=== PATIENT | male | born 1960 | race Caucasian/White ===

== ENCOUNTER 2017-11-04 10:52 | Observation (INO) ==
[2017-11-04] MEDS ORDERED: 0.9 % Sodium Chloride 1,000 ML IVC ONE (11:59)
--- NOTE | 2017-11-04 12:02 | Emergency Department Note ---
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 Has medicines for about 6 months. Says his glucose is a been over 600 last couple days. Pt Subjective Complaint: Elevated blood sugar Onset (ago): week(s) Pain Scale: 0 Improves with: nothing Worsens with: nothing Associated symptoms: Reports: other (Polydipsia polyuria) Treatments Prior to Arrival: none - Related Data Home Medications Medication Instructions Recorded Confirmed Albiglutide [Tanzeum] 50 mg SQ QWEEK 11/04/17 Aspirin 81 mg PO DAILY 11/04/17 Lisinopril [Zestril] 10 mg PO DAILY 11/04/17 Meloxicam [Mobic] 7.5 mg PO BID 11/04/17 Metformin HCl 1,000 mg PO BID 11/04/17 Omeprazole 20 mg PO DAILY 11/04/17 Pioglitazone HCl [Actos] 30 mg PO DAILY 11/04/17 Pravastatin Sodium [Pravachol] 20 mg PO HS 11/04/17 SitaGLIPtin [Januvia] 100 mg PO DAILY 11/04/17 Allergies Allergy/AdvReac Type Severity Reaction Status Date / Time sucralose AdvReac Headache Verified 11/04/17 19:24 [From Splenda (sucralose)] All systems ED: reviewed and negative except as stated. Constitutional: Denies: fever, chills, weakness, weight change Eyes: Denies: eye pain, eye discharge, vision change ENT ED: Denies: ear pain, throat pain, dental pain, hearing loss, epistaxis, congestion, dysphagia Cardiovascular: Denies: chest pain, palpitations, dyspnea on exertion, edema, syncope Respiratory: Denies: cough, dyspnea, wheezes, hemoptysis, stridor Gastrointestinal: Denies: abdominal pain, nausea, vomiting, diarrhea, constipation, hematemesis, melena, hematochezia Genitourinary: Denies: urgency, dysuria, frequency, hematuria Musculoskeletal: Denies: back pain, neck pain, arthralgia, myalgia Integumentary: Denies: rash, abrasion, lesions Neurological: Denies: headache, weakness, numbness, paresthesias, confusion, abnormal gait, vertigo Psychiatric: Denies: anxiety, depression, suicidal thoughts, homicidal thoughts , auditory hallucinations, visual hallucinations Endocrine: Denies: fatigue Hematological/Lymphatic: Denies: easy bleeding, easy bruising Allergic/Immunologic: Denies: facial swelling, urticaria Past Medical History - Past Medical History Medical history: Reports: diabetes, hyperlipidemia, hypertension, kidney stones Psychiatric history: Reports: no psych history - Social History Smoking Status: Current every day smoker Smokeless Tobacco Status: No Alcohol use: Reports: rarely Drug use: Reports: none Physical Exam - General Limitations: no limitations General appearance: alert - Head Head exam: atraumatic, normocephalic, normal inspection - Eye Eye exam: Present: normal appearance - ENT ENT exam: normal exam, normal oropharynx, mucous membranes moist - Neck Neck exam: Present: normal inspection, full ROM, trachea midline - Chest Chest inspection: Present: normal inspection, symmetric chest wall rise - Respiratory Respiratory exam: Present: normal lung sounds bilaterally - Cardiovascular Cardiovascular exam: Present: regular rate, normal rhythm, normal heart sounds - Abdominal Exam Abdominal exam: Present: soft, Non-Tender. Absent: tenderness, distention, guarding, rebound, rigidity - Extremities Exam Extremities exam: Present: normal inspection, full ROM. Absent: tenderness, pedal edema - Expanded Lower Extremity Exam Neurovascular/Tendon exam: Absent: motor deficit, sensory deficit, tendon deficit Gait: observed and normal - Back Exam Back exam: Present: normal inspection, full ROM. Absent: tenderness - Neurological Exam Neurological exam: Present: alert, oriented X3 - Psychiatric Psychiatric exam: Present: normal affect, normal mood - Skin Skin exam: Present: warm, dry, intact, normal color Course - Reevaluation(s) Reevaluation #1: 57-year-old type II diabetic has not had his medicines for several months. Glucose today is over 700. Does have ketones in his blood. His CO2 on his Chem -7 is normal. Time: 13:33 - Consultations Consultation #1: Discussed with , he does not want a insulin drip just fluids. Time: 13:33 Vital Signs Temperature 98 F 11/04/17 11:00 Pulse Rate 109 11/04/17 11:00 Respiratory Rate 20 11/04/17 11:00 Blood Pressure 103/70 11/04/17 11:00 O2 Sat by Pulse Oximetry 92 11/04/17 11:00 Temperature 97.9 F 11/04/17 17:50 Pulse Rate 64 11/04/17 17:50 Respiratory Rate 18 11/04/17 17:50 Blood Pressure 125/76 11/04/17 17:50 O2 Sat by Pulse Oximetry 93 11/04/17 17:50 Oxygen Delivery Oxygen Delivery Room Air Medical Decision Making - Lab Data Result diagrams: 11/04/17 11:34 11/04/17 11:34 Lab Results 11/04/17 11/04/17 11/04/17 Range/Units 11:34 11:34 11:34 WBC 6.5 (4.3-11.1) K/mcL RBC 5.10 (4.19-5.50) M/mcL Hgb 16.3 (12.9-16.9) g/dL Hct 46.2 (37.5-50.1) % MCV 90.6 (83.0-100.0) fL MCH 32.0 (28.0-33.3) pg MCHC 35.3 (31.6-35.5) g/dL RDW 12.3 (11.5-14.5) % Plt Count 159 (140-400) K/mcL MPV 11.3 (9.4-12.4) fL Immature Gran % Test Not Performed Seg Neutrophils % 72.0 % Lymphocytes % 28.0 % Monocytes % Test Not Performed Eosinophils % Test Not Performed Basophils % Test Not Performed Neutrophils # 4.7 (1.6-8.9) K/mcL Lymphocytes # 1.8 (0.6-4.6) K/mcL Monocytes # Test Not Performed Eosinophils # Test Not Performed Basophils # Test Not Performed Platelet Estimate Normal (Normal) Sodium 123 L (136-145) mEq/L Potassium 4.3 (3.5-5.1) mEq/L Chloride 85 L (98-107) mEq/L Carbon Dioxide 26 (23-29) mEq/L BUN 17 (6-20) mg/dL Creatinine 1.35 H (0.70-1.30) mg/dL Est GFR ( Amer) > 60 (> 60) Est GFR (Non-Af Amer) 54 L (> 60) BUN/Creatinine Ratio 13 (6-26) Glucose 727 H* (70-105) mg/dL POC Glucose (70-99) mg/dL Est Mean Plasma Glucose mg/dl Hemoglobin A1c ( - 5.6) % Calculated Osmolality 292 (280-300) Calcium 9.5 (8.6-10.3) mg/dL Total Bilirubin 0.8 (0.3-1.0) mg/dL AST 33 (13-39) Units/L ALT 30 (7-52) Units/L Alkaline Phosphatase 160 H (34-104) Units/L Troponin I < 0.03 (< 0.04) ng/mL Serum Total Protein 7.6 (6.4-8.9) g/dL Albumin 4.3 (3.5-5.7) g/dL Globulin 3.3 (2.4-3.5) g/dL Albumin/Globulin Ratio 1.3 (1.1-2.2) Beta-Hydroxybutyric Acd 0.77 H (0.02-0.27) mmol/L 11/04/17 11/04/17 11/04/17 Range/Units 11:34 14:37 14:43 WBC (4.3-11.1) K/mcL RBC (4.19-5.50) M/mcL Hgb (12.9-16.9) g/dL Hct (37.5-50.1) % MCV (83.0-100.0) fL MCH (28.0-33.3) pg MCHC (31.6-35.5) g/dL RDW (11.5-14.5) % Plt Count (140-400) K/mcL MPV (9.4-12.4) fL Immature Gran % Seg Neutrophils % % Lymphocytes % % Monocytes % Eosinophils % Basophils % Neutrophils # (1.6-8.9) K/mcL Lymphocytes # (0.6-4.6) K/mcL Monocytes # Eosinophils # Basophils # Platelet Estimate (Normal) Sodium (136-145) mEq/L Potassium (3.5-5.1) mEq/L Chloride (98-107) mEq/L Carbon Dioxide (23-29) mEq/L BUN (6-20) mg/dL Creatinine (0.70-1.30) mg/dL Est GFR ( Amer) (> 60) Est GFR (Non-Af Amer) (> 60) BUN/Creatinine Ratio (6-26) Glucose (70-105) mg/dL POC Glucose 470 H* 458 H* (70-99) mg/dL Est Mean Plasma Glucose 467 mg/dl Hemoglobin A1c 17.9 H ( - 5.6) % Calculated Osmolality (280-300) Calcium (8.6-10.3) mg/dL Total Bilirubin (0.3-1.0) mg/dL AST (13-39) Units/L ALT (7-52) Units/L Alkaline Phosphatase (34-104) Units/L Troponin I (< 0.04) ng/mL Serum Total Protein (6.4-8.9) g/dL Albumin (3.5-5.7) g/dL Globulin (2.4-3.5) g/dL Albumin/Globulin Ratio (1.1-2.2) Beta-Hydroxybutyric Acd (0.02-0.27) mmol/L - Radiology Data Radiology results reviewed: Yes I reviewed the patient's radiology results. Chest X-Ray 11/04/17 11:58 IMPRESSION: Minimal discoid atelectasis in the left lung, otherwise no acute cardiopulmonary process seen. D/ / Jose Robles MD / Jose Robles MD Interpreting Provider: Jose Robles MD - EKG Data EKG #1 EKG attestation: Yes I reviewed and interpreted this EKG. EKG shows normal: sinus rhythm Rate: normal Rhythm: NSR [place]/QRS: normal Interpretation: no acute changes
[2017-11-04 12:07] LABS: Hematocrit 46.2 % (37.5-50.1); Hemoglobin 16.3 g/dL (12.9-16.9); Mean Corpuscular HGB Conc 35.3 g/dL (31.6-35.5); Mean Corpuscular Volume 90.6 fL (83.0-100.0); Mean Platelet Volume 11.3 fL (9.4-12.4); Platelet Count 159 K/mcL (140-400); Red Cell Distribution Width 12.3 % (11.5-14.5)
[2017-11-04 12:27] LABS: Lymphocytes # 1.8 K/mcL (0.6-4.6); Neutrophils # 4.7 K/mcL (1.6-8.9); Platelet Estimate Normal (Normal)
[2017-11-04] MEDS ORDERED: Ipratropium/Albuterol Neb 3 ML IH ONE (12:32)
[2017-11-04 12:47] LABS: Alanine Aminotransferase 30 Units/L (7-52); Albumin 4.3 g/dL (3.5-5.7); Albumin/Globulin Ratio 1.3 (1.1-2.2); Alkaline Phosphatase 160 Units/L (34-104); Aspartate Amino Transferase 33 Units/L (13-39); BUN/Creatinine Ratio 13 (6-26); Bilirubin,Total 0.8 mg/dL (0.3-1.0); Blood Urea Nitrogen 17 mg/dL (6-20); Calcium 9.5 mg/dL (8.6-10.3); Carbon Dioxide 26 mEq/L (23-29); Chloride 85 mEq/L (98-107); Globulin 3.3 g/dL (2.4-3.5); Glucose 727 mg/dL (70-105); Osmolality,Calculated 292 (280-300); Potassium 4.3 mEq/L (3.5-5.1); Sodium 123 mEq/L (136-145); Total Protein 7.6 g/dL (6.4-8.9); eGFR For African Americans > 60 (> 60); eGFR For Non-African Americans 54 (> 60)
[2017-11-04 13:13] LABS: Troponin I < 0.03 ng/mL (< 0.04)
[2017-11-04] MEDS ORDERED: Insulin Human Regular 8 UNIT in 0.9 % Sodium Chloride 10 ML IV ONE (13:13)
[2017-11-04] MEDS ORDERED: *HR* Dextrose 50 % in Water (Syg) 50 ML SYRINGE IVP PRN ×2 (13:14→15:44)
[2017-11-04] MEDS ORDERED: Insulin Human Regular 100 UNIT in 0.9 % Sodium Chloride 100 ML IVC SCH (13:15)
[2017-11-04] MEDS ORDERED: Acetaminophen 325 MG TABLET PO ONE (14:25)
[2017-11-04] MEDS ORDERED: Naloxone 0.4 MG/ML INJ IVP PRN (15:34)
[2017-11-04] MEDS ORDERED: Ondansetron 4 MG/2 ML VIAL IVP PRN (15:40)
[2017-11-04] MEDS ORDERED: *HR* HYDROcodone/Acet 5/325 mg TABLET PO PRN (15:40)
[2017-11-04] MEDS ORDERED: *HR* Promethazine 25 MG/ML VIAL IVP PRN (15:40)
[2017-11-04] MEDS ORDERED: Acetaminophen 325 MG TABLET PO PRN (15:40)
[2017-11-04] MEDS ORDERED: D5% in Water 1,000 ML IVC PRN (15:44)
[2017-11-04] MEDS ORDERED: Dextrose Gel 15 GM/37.5 ML TUBE PO PRN ×2 (15:44)
--- NOTE | 2017-11-04 15:49 | Internal Med History&Physical ---
Date of Encounter: 11/04/17 Time of Encounter: 14:30 Internal Medicine - H&P: HPI Chief complaint: Hyperglycemia Admitted From: Emergency Dept Plans for Post Hospital Care: Home History of present illness: Mr. Truong is a 57 year old male with knwon HTN,HLD and DM2 who moved to [place] from [place] 6 months ago ran out of his diabettic medication for all these months, now he presented to ER with elevated blood sugar and blurrry vision. He does c/ o fatigue, weakness, and feeling thirsty. He denied any CP. He does c/o some nausea and mild epigastric discomfort. Past Med Surg Social Fam HX - Past Medical History Medical history: diabetes, hyperlipidemia, hypertension, kidney stones Psychiatric history: no psych history - Social History Smoking Status: Current every day smoker Smokeless Tobacco Status: No Alcohol use: rarely Drug use: none - Family History Mother Hx Family Cardiac Disorders: Yes (HTN) Hx Family Endocrine Disorder: Yes (DM2) Internal Medicine - H&P: Meds Albiglutide [Tanzeum] 50 mg SQ QWEEK 11/04/17 [History] Aspirin 81 mg PO DAILY 11/04/17 [History] Lisinopril [Zestril] 10 mg PO DAILY 11/04/17 [History] Meloxicam [Mobic] 7.5 mg PO BID 11/04/17 [History] Metformin HCl 1,000 mg PO BID 11/04/17 [History] Omeprazole 20 mg PO DAILY 11/04/17 [History] Pioglitazone HCl [Actos] 30 mg PO DAILY 11/04/17 [History] Pravastatin Sodium [Pravachol] 20 mg PO HS 11/04/17 [History] SitaGLIPtin [Januvia] 100 mg PO DAILY 11/04/17 [History] 3 Allergy/AdvReac Type Severity Reaction Status Date / Time No Known Allergies Allergy Verified 11/04/17 14:25 All Systems PM: A 10-system review of systems was performed and is negative for pertinent findings except as documented above in the HPI. Review of systems: All the systems are reviewed everything is benign except the systems and symptoms I mentioned in the history of present illness - Constitutional Vitals: Temp Pulse Resp BP Pulse Ox 98 F 90 18 135/101 95 11/04/17 11:00 11/04/17 15:09 11/04/17 15:09 11/04/17 15:09 11/04/17 15:09 General appearance: Present: A&O X 3, no acute distress, answers questions appropriately - Neck Neck exam general surgery: Present: supple - Respiratory Respiratory exam: Present: decreased breath sounds. Absent: rales, respiratory distress, rhonchi, wheezes - Cardiovascular Cardiovascular exam: Present: RRR, +S1, +S2. Absent: tachycardia - GI/Abdominal GI/Abdominal exam: Present: normal bowel sounds, soft. Absent: rebound, rigid, tenderness - Extremities Exam Extremities exam: Absent: calf tenderness, pedal edema, tenderness - Back Exam Back exam: Absent: CVA tenderness (L), CVA tenderness (R) - Neurological Exam Neurological exam: Present: alert, oriented X3 - Psychiatric Psychiatric exam: Present: normal affect, normal mood - Skin Skin exam: Absent: rash Internal Med - H&P Results - Labs CBC & Chem 7: 11/04/17 11:34 11/04/17 11:34 - Assessment and plan (1) Hyperglycemia Current Visit: Yes Status: Acute Assessment and plan: Place the pt into Tele for observation His current accucheck 450 started him on high dose ISS will check HbA1C in AM counseled the pt about importance of following with PCP regularly and getting refills on his medications Started him on IV hydration He is not in DKA..Normal anion gap. (2) Diabetes type 2, uncontrolled Current Visit: Yes Status: Acute Qualifiers: Diabetes mellitus snf insulin use: without oven builder use Diabetes mellitus complication status: with hyperglycemia Qualified Code(s): E11.65 - Type 2 diabetes mellitus with hyperglycemia (3) HTN (hypertension) Current Visit: Yes Status: Acute Assessment and plan: stable started him on low dose ACEI Qualifiers: Hypertension type: essential hypertension Qualified Code(s): I10 - Essential (primary) hypertension (4) HLD (hyperlipidemia) Current Visit: Yes Status: Acute Assessment and plan: check FLP in AM Qualifiers: Hyperlipidemia type: unspecified Qualified Code(s): E78.5 - Hyperlipidemia , unspecified - Time Spent With Patient Total time spent is greater than 50% in coordination of care (as documented) at patient's floor/unit and/or counseling patient:
[2017-11-04 16:07] LABS: Estimated Average Glucose 467 mg/dl; Hemoglobin A1C 17.9 %
[2017-11-04] MEDS: Lisinopril 20 MG TABLET PO SCH (17:20)
[2017-11-04] MEDS: 0.9 % Sodium Chloride 1,000 ML IVC SCH (17:20)
[2017-11-04] MEDS: Insulin LISPRO 300 UNITS/3 ML VIAL SQ SCH ×2 (17:24→21:05)
[2017-11-04] MEDS ORDERED: Insulin LISPRO 300 UNITS/3 ML VIAL SQ ONE (17:37)
[2017-11-04 19:26] LABS: Bilirubin,Urine Negative (Negative); Blood,Urine Negative (Negative); Clarity,Urine Clear (Clear); Color,Urine Yellow (Yellow); Glucose,Urine (UA) >=1000 mg/dL (Normal); Ketones,Urine Trace mg/dL (Negative); Leukocyte Esterase,Urine Negative (Negative); Nitrite,Urine Negative (Negative); Protein,Urine Negative (Neg-Trace); Specific Gravity,Urine > 1.030 (1.010-1.025); Urobilinogen,Urine Normal (Normal)
[2017-11-04] MEDS: Nicotine 21 MG PATCH.TD24 TD SCH (21:08)
[2017-11-05] MEDS: 0.9 % Sodium Chloride 1,000 ML IVC SCH ×2 (03:43→14:22)
[2017-11-05 06:00] LABS: Basophils % 0.4 %; Eosinophils # 0.1 K/mcL (0.0-0.6); Eosinophils % 1.5 %; Hematocrit 41.3 % (37.5-50.1); Immature Granulocytes % 0.6 % (0-4); Lymphocytes # 2.9 K/mcL (0.6-4.6); Lymphocytes % 42.4 %; Mean Corpuscular HGB Conc 35.1 g/dL (31.6-35.5); Mean Corpuscular Hemoglobin 32.3 pg (28.0-33.3); Mean Platelet Volume 10.5 fL (9.4-12.4); Monocytes # 0.4 K/mcL (0.0-1.3); Monocytes % 6.4 %; Neutrophils # 3.3 K/mcL (1.6-8.9); Platelet Count 129 K/mcL (140-400); Red Blood Count 4.49 M/mcL (4.19-5.50); Red Cell Distribution Width 12.5 % (11.5-14.5); Segmented Neutrophils % 48.7 %
[2017-11-05 06:05] LABS: Hemoglobin 14.5 g/dL (12.9-16.9)
[2017-11-05 06:20] LABS: BUN/Creatinine Ratio 20 (6-26); Blood Urea Nitrogen 22 mg/dL (6-20); Calcium 8.1 mg/dL (8.6-10.3); Carbon Dioxide 23 mEq/L (23-29); Chloride 100 mEq/L (98-107); Chol/HDL Ratio 6.9 (0-4.9); Cholesterol 137 mg/dL (< 200); Glucose 319 mg/dL (70-105); HDL Cholesterol 20 mg/dL (40-59); LDL Cholesterol,Calculated 47 mg/dL (0-99); Osmolality,Calculated 288 (280-300); Potassium 4.3 mEq/L (3.5-5.1); Sodium 131 mEq/L (136-145); Triglycerides 351 mg/dL (< 150); eGFR For African Americans > 60 (> 60); eGFR For Non-African Americans > 60 (> 60)
[2017-11-05] MEDS: Aspirin Enteric Coated 81 MG Tablet PO SCH (08:23)
[2017-11-05] MEDS: Nicotine 21 MG PATCH.TD24 TD SCH (08:23)
[2017-11-05] MEDS: Lisinopril 20 MG TABLET PO SCH (08:23)
[2017-11-05] MEDS: Insulin LISPRO 300 UNITS/3 ML VIAL SQ SCH ×4 (08:24→20:47)
--- NOTE | 2017-11-05 08:46 | Electrocardiograph Report ---
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
--- NOTE | 2017-11-05 10:05 | Internal Med Progress Note ---
Date of Encounter: 11/05/17 Time of Encounter: 10:05 - Assessment and plan (1) Diabetes type 2, uncontrolled Current Visit: Yes Status: Acute Assessment and plan: Placed pt into Tele for observation. His accu-check was 450. He was started him on high dose ISS HbA1C this AM is 17.9. Restarted home diabetic medication and adding Levemir. counseled the pt about importance of following with PCP regularly and getting refills on his medications Started him on IV hydration. Will consult life skills educator. He is not in DKA. Normal anion gap. Qualifiers: Diabetes mellitus skilled nursing insulin use: without adjunct faculty for medical terminology use Diabetes mellitus complication status: with hyperglycemia Qualified Code(s): E11.65 - Type 2 diabetes mellitus with hyperglycemia (2) HLD (hyperlipidemia) Current Visit: Yes Status: Acute Assessment and plan: FLP shows Triglycerides 351, LDL 47, HDL 20, cholesterol 137. Qualifiers: Hyperlipidemia type: unspecified Qualified Code(s): E78.5 - Hyperlipidemia , unspecified (3) HTN (hypertension) Current Visit: Yes Status: Acute Qualifiers: Hypertension type: essential hypertension Qualified Code(s): I10 - Essential (primary) hypertension (4) Hyperglycemia Current Visit: Yes Status: Acute - Time Spent With Patient Total time spent is greater than 50% in coordination of care (as documented) at patient's floor/unit and/or counseling patient: less than 15 minutes - Subjective Interval history: Mr. Truong is a 57 year old male with knwon HTN,HLD and DM2 who moved to [place] from [place] 6 months ago ran out of his diabetic medication for all these months, now he presented to ER with elevated blood sugar and blurrry vision. He does c/ o fatigue, weakness, and feeling thirsty. He denied any CP. He does c/o some nausea and mild epigastric discomfort. HE denies CP or SOB. HE denies N/V or diarrhea. He denies fever or chills. - Constitutional Vitals: Temp Pulse Resp BP Pulse Ox 98.0 F 86 18 111/67 92 11/05/17 07:10 11/05/17 07:10 11/05/17 07:10 11/05/17 07:10 11/05/17 07:10 General appearance: Present: A&O X 3, no acute distress, answers questions appropriately - Head Head exam: Present: atraumatic, normocephalic - Eye Eye exam: Present: PERRL, conjuntiva pink, sclera anicteric Pupils: Present: PERRL - Neck Neck exam general surgery: Present: supple, trachea midline. Absent: lymphadenopathy - Respiratory Respiratory exam: Present: CTAB. Absent: accessory muscle use, rales, rhonchi, wheezes - Cardiovascular Cardiovascular exam: Present: RRR, +S1, +S2. Absent: diastolic murmur, gallop, rubs, systolic murmur - GI/Abdominal GI/Abdominal exam: Present: normal bowel sounds, soft, no peritoneal signs. Absent: distended, tenderness - Extremities Exam Extremities exam: Present: warm, radial pulses palpable and symmetrical. Absent : calf tenderness, cyanotic, pedal edema - Neurological Exam Neurological exam: Present: CN II-XII intact, oriented X3, no focal deficits. Absent: pronater drift, facial droop, speech deficit - Skin Skin exam: Present: dry, intact Internal Medicine: Result - Labs CBC & Chem 7: 11/05/17 05:40 11/05/17 05:40 Labs: Short CBC 11/05/17 Range/Units 05:40 WBC 6.9 (4.3-11.1) K/mcL Hgb 14.5 D (12.9-16.9) g/dL Hct 41.3 (37.5-50.1) % Plt Count 129 L (140-400) K/mcL Neutrophils # 3.3 (1.6-8.9) K/mcL BMP 11/05/17 05:40 Sodium 131 L Potassium 4.3 Chloride 100 Carbon Dioxide 23 BUN 22 H Creatinine 1.09 Glucose 319 H Calcium 8.1 L Urine 11/04/17 Range/Units 19:00 Urine Color Yellow (Yellow) Urine Clarity Clear (Clear) Urine pH 6.0 (5.0-8.0) pH Units Ur Specific [place] > 1.030 H (1.010-1.025) Urine Protein Negative (Neg-Trace) mg/dL Urine Glucose (UA) >=1000 H (Normal) mg/dL Consult Discharge Plan - Plan Referrals: Lindsey Nix, PLANER FEEDER [Advanced Practice Nurse] - 11/17/17 1:30 pm (You will receive a new patient packet in the mail, please complete and bring with you. You will also need to bring your photo ID, insurance card and any medications you are on. If you need to cancel, please give a 24 hour notice. Thank you.)
[2017-11-05] MEDS: *HR* Metformin 500 MG TABLET PO SCH (16:18)
[2017-11-05] MEDS: Insulin DETEMIR 100 UNIT/ML X5UNITS SQ SCH (20:47)
[2017-11-06] MEDS: 0.9 % Sodium Chloride 1,000 ML IVC SCH ×2 (00:14→10:31)
[2017-11-06] MEDS ORDERED: *HR* Pioglitazone 30 MG TABLET PO SCH (08:00)
[2017-11-06] MEDS: Insulin LISPRO 300 UNITS/3 ML VIAL SQ SCH ×2 (08:10→11:55)
[2017-11-06] MEDS: Insulin DETEMIR 100 UNIT/ML X5UNITS SQ SCH (08:11)
[2017-11-06] MEDS: Nicotine 21 MG PATCH.TD24 TD SCH (08:11)
[2017-11-06] MEDS: *HR* Metformin 500 MG TABLET PO SCH (08:12)
[2017-11-06] MEDS: Aspirin Enteric Coated 81 MG Tablet PO SCH (08:12)
[2017-11-06] MEDS: Lisinopril 20 MG TABLET PO SCH (08:12)
[2017-11-06] MEDS ORDERED: *HR* SitaGLIPtin 100 MG TABLET PO SCH (09:00)
[2017-11-06] MEDS ORDERED: Insulin DETEMIR 100 UNIT/ML X5UNITS SQ ONE (09:51)
[2017-11-06 11:48] VITALS: BP 103/61
--- NOTE | 2017-11-06 13:17 | Discharge Summary ---
Date of Encounter: 11/06/17 Time of Encounter: 13:00 - Discharge Diagnosis (1) Diabetes type 2, uncontrolled Priority: Primary Status: Acute Qualifiers: Diabetes mellitus manager long term care insulin use: without manager long term care use Diabetes mellitus complication status: with hyperglycemia Qualified Code(s): E11.65 - Type 2 diabetes mellitus with hyperglycemia (2) Hyperglycemia Priority: Primary Status: Acute (3) HTN (hypertension) Priority: Secondary Status: Acute Qualifiers: Hypertension type: essential hypertension Qualified Code(s): I10 - Essential (primary) hypertension (4) HLD (hyperlipidemia) Priority: Secondary Status: Acute Qualifiers: Hyperlipidemia type: unspecified Qualified Code(s): E78.5 - Hyperlipidemia , unspecified (5) Tobacco abuse Priority: Secondary Status: Acute Assessment and Plan: Counselled, resources offered Hospital course: 57-year-old male with a past medical history of type 2 diabetes mellitus poorly controlled, hypertension, hyperlipidemia, ongoing tobacco abuse. Patient states he ran out of his insulin for the last several months and presented to the emergency room with an elevated blood sugar and blurry vision. On admission his blood sugar was 727. Sodium 123, potassium 4.3, chloride 85, CO2 26. BUNs 17 creatinine 1.35. He was not in DKA. Patient was admitted. His insulin was restarted and adjusted. Patient had a fairly uncomplicated hospital course. Social work was involved and patient was able to obtain medications through insurance. On day of discharge his blood sugars were running in the mid 200s. He was tolerating a full diet. He had nausea initially but this did improve. Patient did not show any signs of infection. Patient's A1c came back at 17.9. He was doing well and deemed stable for discharge. Pt was seen by it operations specialist. He was counseled extensively on the importance of compliance with his insulin regimen. His discharge insulin dose is Levemir 18 units subcutaneous twice a day, plus sliding scale insulin. He also will continue on Januvia and metformin as was previously prescribed. He will continue on LYNETTE inhibitor for blood pressure management. His cholesterol panel showed a triglyceride of 351, LDL of 47, HDL of 20. Total cholesterol 137. TSH nml. Patient was counseled on dietary measures for diabetes as well as his hypertriglyceridemia. It is recommended patient have a follow-up lipid panel, and if triglycerides are in fact still elevated he will likely need treatment for this as well. This will be deferred to follow-up. Patient needs close follow-up with primary care provider. I had a long discussion with him on the importance of compliance, and complications of diabetes. Pt was also counseled on smoking cessation. Resources offered. Discharge discussed with: patient Time spent discussing smoking cessation with patient: 3 to 10 minutes - Time Spent with Patient Total time spent providing and/or coordinating discharge services: Greater than 30 minutes - Discharge Medications Home Medications: Albiglutide [Tanzeum] 50 mg SQ QWEEK 11/04/17 [History] Aspirin 81 mg PO DAILY 11/04/17 [History] Lisinopril [Zestril] 10 mg PO DAILY 11/04/17 [History] Meloxicam [Mobic] 7.5 mg PO BID 11/04/17 [History] Metformin HCl 1,000 mg PO BID 11/04/17 [History] Omeprazole 20 mg PO DAILY 11/04/17 [History] Pioglitazone HCl [Actos] 30 mg PO DAILY 11/04/17 [History] Pravastatin Sodium [Pravachol] 20 mg PO HS 11/04/17 [History] SitaGLIPtin [Januvia] 100 mg PO DAILY 11/04/17 [History] Allergies/Adverse Reactions: 3 Allergy/AdvReac Type Severity Reaction Status Date / Time sucralose AdvReac Headache Verified 11/04/17 19:24 [From Splenda (sucralose)] Date of admission: 11/04/17 14:57 Primary care physician: PCP NONE Consults: 11/05/17 14:31 Consult to Diabetes Education [CONS] Routine Comment: Reason for Consult: non-complaince with diabetic medication past 6 months Discharging clinician: Eloy La Anticipated date of discharge: 11/06/17 - Constitutional Vitals: Temp Pulse Resp BP Pulse Ox 97.9 F 90 16 103/61 93 11/06/17 11:45 11/06/17 11:45 11/06/17 11:45 11/06/17 11:45 11/06/17 11:45 General appearance: Present: A&O X 3, no acute distress, answers questions appropriately - Head Head exam: Present: atraumatic, normocephalic - Eye Eye exam: Present: PERRL, conjuntiva pink, sclera anicteric Pupils: Present: PERRL - Neck Neck exam general surgery: Present: supple, trachea midline. Absent: lymphadenopathy - Respiratory Respiratory exam: Present: CTAB. Absent: accessory muscle use, rales, rhonchi, wheezes - Cardiovascular Cardiovascular exam: Present: RRR, +S1, +S2. Absent: diastolic murmur, gallop, rubs, systolic murmur - GI/Abdominal GI/Abdominal exam: Present: normal bowel sounds, soft, no peritoneal signs. Absent: distended, tenderness - Extremities Exam Extremities exam: Present: pedal edema (Chronic venous stasis changes), warm, radial pulses palpable and symmetrical. Absent: calf tenderness, cyanotic - Neurological Exam Neurological exam: Present: CN II-XII intact, oriented X3, no focal deficits. Absent: pronater drift, facial droop, speech deficit - Skin Skin exam: Present: dry, intact - Patient Status Disposition: Home, Self-Care Condition: Fair Functional capacity at discharge: independent ambulation Overall status at discharge: patient is progressing back to baseline - Discharge Instructions Instructions: Diabetes Mellitus Type 2 in Adults (GEN), How to Stop Smoking, Chrome Worker (GEN) Follow Up With: Lindsey Nix EARRINGS FABRICATOR [Advanced Practice Nurse] - 11/17/17 1:30 pm (You will receive a new patient packet in the mail, please complete and bring with you. You will also need to bring your photo ID, insurance card and any medications you are on. If you need to cancel, please give a 24 hour notice. Thank you.)
[2017-11-06] MEDS ORDERED: Insulin DETEMIR 100 UNIT/ML X5UNITS SQ SCH (21:00)
== END 2017-11-06 15:29 | disposition home or self-care (01) ==
LOC: 3ANU 10:52 → EMEROO 10:52 → 3ANU 15:37
PROVIDERS: ADMIT Family Medicine; ATTEND Family Medicine